=== PATIENT | female | born 1990 | race Two or more races ===

== ENCOUNTER 2018-10-22 01:56 | Emergency (ER) | payer BC ==
[2018-10-22] MEDS ORDERED: DEXAMETHASONE SOD PHOS INJ 10 MG/1 ML VIAL IM ONE (03:31)
[2018-10-22] MEDS ORDERED: FAMOTIDINE 20 MG TABLET PO ONE (03:31)
--- NOTE | 2018-10-22 03:36 | ER Document Report ---
HPI - HPI Time Seen by Provider: 10/22/18 03:25 Pain Level: 3 Context: Patient is a 28-year-old female that comes emergency department for chief complaint of insect bites, she states that after she was bitten she started having swelling on her face and on her right arm mainly. The swelling slightly worsened therefore she came to the emergency department. She states she has had this several times in the past. She brought two of the bugs with her, she is staying at a local hotel. She reports past medical history of hypothyroidism, denies medical history otherwise. - REPRODUCTIVE Reproductive: DENIES: : Past Medical History - General Information source: Patient - Social History Smoking Status: Never Smoker Chew tobacco use (# tins/day): No Frequency of alcohol use: None Drug Abuse: None Lives with: Family Family History: Reviewed & Not Pertinent Patient has suicidal ideation: No Patient has homicidal ideation: No Endocrine Medical History: Reports: Hx Hypothyroidism Renal/ Medical History: Denies: Hx Peritoneal Dialysis Surgical Hx: Negative - Immunizations Immunizations up to date: Yes Hx Diphtheria, Pertussis, Tetanus Vaccination: Yes Vertical Provider Document - CONSTITUTIONAL General Appearance: WD/WN, No Apparent Distress - INFECTION CONTROL TRAVEL OUTSIDE OF THE [place] IN LAST 30 DAYS: No - HEENT HEENT: Atraumatic, Normal ENT Exam, Normocephalic, PERRLA. negative: Conjuctival Injection, Dental Injury, Pharyngeal Exudate, Pharyngeal Tenderness, Pharyngeal Erythema, Tympanic Membrane Red, Tympanic Membrane Bulging - NECK Neck: Normal Inspection - RESPIRATORY Respiratory: Breath Sounds Normal, No Respiratory Distress - CARDIOVASCULAR Cardiovascular: Regular Rate, Regular Rhythm - GI/ABDOMEN Gastrointestinal: Abdomen Soft, Abdomen Non-Tender - BACK Back: Normal Inspection - MUSCULOSKELETAL/EXTREMETIES Musculoskeletal/Extremeties: MAEW, FROM, Non-Tender - NEURO Level of Consciousness: Awake, Alert, Appropriate - DERM Integumentary: Warm, Dry, Rash - There is an area on the forehead that appears to be an insect bite and there is some surrounding mild soft tissue swelling and erythema. The same appearance is on the right forearm over the flexor surface. Skin examination is completely unremarkable otherwise. Course - Re-evaluation Re-evalutation: There are 2 areas which appear to have a localized inflammatory response. Patient states she has had this before in the past and required treatment. No evidence of anaphylaxis, no hives, no induration or fluctuance, no evidence of cellulitis. Patient was treated with dexamethasone and antihistamines after discussion. Discussed follow-up and return precautions. Patient states satisfaction and agreement. - Vital Signs Vital signs: Temp Pulse Resp BP Pulse Ox 98.2 F 78 18 116/79 99 10/22/18 02:08 10/22/18 02:08 10/22/18 02:08 10/22/18 02:08 10/22/18 02:08 Discharge - Discharge Clinical Impression: Skin rash Bed bug bite Qualifiers: Encounter type: initial encounter Qualified Code(s): W57.XXXA - Bitten or stung by nonvenomous insect and other nonvenomous arthropods, initial encounter Condition: Stable Disposition: HOME, SELF-CARE Additional Instructions: Your evaluation is consistent with a localized inflammatory response to the insect bites. The bites are consistent with bedbugs based on the appearance and the insects you brought in tonight. Try not to scratch, when you get home take the Benadryl you have, take the cetirizine you have for the next several days. Follow-up with primary care. Return if you worsen including developing pain, spreading redness, swelling of the face/tongue/throat, or any other concerning symptoms.
[2018-10-22 04:03] VITALS: BP 119/81
== END 2018-10-22 04:03 | disposition home or self-care (01) ==
LOC: ER 01:56
DX: R21 Rash and other nonspecific skin eruption (principal); R22.0 Localized swelling, mass and lump, head; M79.89 Other specified soft tissue disorders; W57.XXXA Bitten or stung by nonvenomous insect and other nonvenomous arthropods, initial encounter
CPT/HCPCS: 99281; 96372; J1100